=== PATIENT | female | born 1995 | race African-American/Black ===

== ENCOUNTER 2021-06-16 03:33 | Emergency (ER) | payer SELFPAY ==
[~2021-06-16] VITALS: Ht 160 cm; Wt 70.0 kg
[2021-06-16 06:50] VITALS: BP 128/65
== END 2021-06-16 06:51 | disposition home or self-care (01) ==
LOC: ER 03:33
DX: R51.9 Headache, unspecified (principal); F20.9 Schizophrenia, unspecified; F32.A Depression, unspecified; Z59.00 Homelessness unspecified; Z87.828 Personal history of other (healed) physical injury and trauma
CPT/HCPCS: 99283